=== PATIENT | male | born 1965 | race Caucasian/White ===

== ENCOUNTER 2018-08-05 07:20 | Observation (INO) | payer BC ==
--- NOTE | 2018-08-03 12:26 | Diagnostic Imaging Report ---
EXAMINATION: PA and lateral views of the chest. COMPARISON: None CLINICAL HISTORY: L5-S1 disc herniation. DISCUSSION: Lines/tubes: None. Lungs: The lungs are well inflated. Ill-defined 5-6 mm nodular density projecting in the retrosternal space on the seen in the lateral view. Lungs are otherwise clear.. There is no evidence of pneumonia or pulmonary edema. Pleura: There is no pleural effusion or pneumothorax. Heart and mediastinum: Cardiomediastinal silhouette is unremarkable. Pulmonary vasculature is normal. Bones and soft tissues: No acute bony abnormalities. IMPRESSION: No acute cardiopulmonary abnormalities. 5-6 mm nodular density projecting in the retrosternal space on the lateral view only. This may represent a calcified granuloma or pulmonary nodule. Prior films, if available, would be helpful for comparison. If no prior films can be obtained, recommend follow-up chest PA and lateral in 2-3 months to document stability. Alternatively, a noncontrast chest CT may be obtained for further evaluation. Signed by: Dr. Alejandro Corey M.D. on 08/03/2018 12:22 PM
[2018-08-03 12:29] LABS: BASOPHILS % 0.2 % (0.0-1.0); EOSINOPHILS # (AUTO) 0.1 (0.0-0.4); EOSINOPHILS % 0.6 % (0.0-6.0); HEMATOCRIT 48.4 % (38.2-49.6); HEMOGLOBIN 16.4 g/dL (14.0-18.0); LYMPHOCYTES # (AUTO) 2.3 (1.0-3.2); LYMPHOCYTES % 27.8 % (18.0-39.1); MEAN CORPUSCULAR HEMOGLOBIN 30.4 pg (28-32); MEAN CORPUSCULAR HGB CONC 33.9 g/dL (31-35); MEAN CORPUSCULAR VOLUME 89.8 fL (81-99); MONOCYTES # (AUTO) 0.6 (0.2-0.8); MONOCYTES % 6.9 % (4.4-11.3); NEUTROPHILS # (AUTO) 5.2 (2.1-6.9); NEUTROPHILS % 64.1 % (38.7-80.0); PLATELET COUNT 177 x10e3/uL (140-360); RED BLOOD COUNT 5.39 x10e6/uL (4.3-5.7); RED CELL DISTRIBUTION WIDTH 13.1 % (11.7-14.4)
[2018-08-03 12:41] LABS: INR 0.95; PROTHROMBIN TIME 13.5 seconds (11.9-14.5)
[2018-08-03 12:42] LABS: PARTIAL THROMBOPLASTIN TIME 28.6 seconds (23.8-35.5)
[2018-08-03 12:48] LABS: ANION GAP 14.3 mmol/L (8-16); BLOOD UREA NITROGEN 15 mg/dL (7-26); BUN/CREATININE RATIO 12 (6-25); CALCIUM 9.1 mg/dL (8.4-10.2); CARBON DIOXIDE 24 mmol/L (22-29); CHLORIDE 104 mmol/L (98-107); CREATININE, SERUM 1.22 mg/dL (0.72-1.25); EST GLOMERULAR FILTRATION RATE > 60 ML/MIN (60-); GLUCOSE 97 mg/dL (74-118); POTASSIUM 4.3 mmol/L (3.5-5.1); SODIUM 138 mmol/L (136-145)
[~2018-08-05] VITALS: Ht 180.3 cm; Wt 93.0 kg
[~2018-08-05 07:20] MED LIST: ACETAMINOPHEN 1000 MG/100 ML 100 ML IV ONE; LIDOCAINE HCL (LTA) 4 ML SOLN ONE
--- OUTSIDE RECORDS SUMMARY | 2018-08-05 07:22 | XMS REPORT | Clinical Summary ---
Author Author [facility] Address Unknown Phone Unavailable Care Team Providers Care Corporate Director Of Human Resources Name Role Phone Jarod Haynes MD PCP Allergies No Known Allergies Medications End Date Status Medication Sig Dispensed Refills Start Date 12/29/2017 sodium,potassium,mag Take 2 2 Bottle 0 sulfates 17.5-3.13-1.6 Bottles by 8 gram recon mouth once solnIndications: Colon for 1 dose. cancer screening Active Problems Not on file Encounters Care Team Description Date Type Specialty Mary Jane Cervantes MA 01/13/2018 Telephone Gastroenterology Ramírez Rice MD 01/08/2018 Anesthesia Gastroenterology Event Octavio Carney MD Colonoscopy with polypectomies 01/08/2018 Surgery Gastroenterology Octavio Carney MD Screen for colon cancer (Primary Dx); Colon cancer screening; Epigastric pain 01/08/2018 Hospital Gastroenterology Encounter Octavio Carney MD Colon cancer screening (Primary Dx); Epigastric pain; Dyspepsia 12/29/2017 Office Visit Gastroenterology after 08/04/2017 Family History Medical History Relation Name Comments No Known Problems Brother No Known Problems Father No Known Problems Mother No Known Problems Sister Relation Name Status Comments Brother Alive Father Mother Sister Alive Social History Date Tobacco Use Types Packs/Day Years Used Quit: 12/11/2017 Former Smoker Smokeless Tobacco: Never Used Alcohol Use Drinks/Week oz/Week Comments Yes Socially Sex Assigned at Date Recorded Not on file Industry Job Start Date Occupation Not on file Not on file Not on file Travel End Travel History Travel Start No recent travel history available. Last Filed Vital Signs Time Taken Vital Sign Reading 01/08/2018 10:05 AM CDT Blood Pressure 115/71 01/08/2018 10:05 AM CDT Pulse 69 01/08/2018 9:12 AM CDT Temperature 36.5 C (97.7 F) 01/08/2018 10:05 AM CDT Respiratory Rate 16 01/08/2018 10:05 AM CDT Oxygen Saturation 96% - Inhaled Oxygen - Concentration 01/08/2018 7:28 AM CDT Weight 95.7 kg (211 lb) 01/08/2018 7:28 AM CDT Height 180.3 cm (5' 11") 01/08/2018 7:28 AM CDT Body Mass Index 29.43 Plan of Treatment Health Maintenance Due Date Last Done Comments MMR VACCINES (1 of 1 - 1967 Standard series) VARICELLA VACCINES (1 of 1979 2 - 2-dose adolescent series) COLON CANCER SCREENING 2016 SHINGRIX VACCINE (1 of 2) 2016 INFLUENZA VACCINE 04/21/2018 HEPATITIS B VACCINES Aged Out No longer eligible based on patient's age to complete this topic IPV VACCINES Aged Out No longer eligible based on patient's age to complete this topic MENINGOCOCCAL VACCINE Aged Out No longer eligible based on patient's age to complete this topic Implants Device Identifier Shelf Expiration Date Model / Serial / Lot Implanted Type Area Manufactur er [id number] / / Clip Resolution 360 Mr Cndtl 235cm Surgical N/A: N/A BSC 2.8mm 11mm Opening - [id number] Implants; ENDOSCOPY Implanted: 01/08/2018 (Quantity not Expanders; on file) Extenders; Surgical Wires Procedures Comments Procedure Name Priority Date/Time Associated Diagnosis SURGICAL PATHOLOGY Routine 01/08/2018 REQUEST 11:12 AM CDT ESOPHAGOGASTRODUODENOSCOP 01/08/2018 Colon cancer screening Y (EGD) 8:30 AM CDT Epigastric pain COLONOSCOPY 01/08/2018 Colon cancer screening 8:30 AM CDT Epigastric pain after 08/04/2017 Results * Surgical pathology request (01/08/2018 11:12 AM CDT) [facility] Surgical pathology report See link below for PDF Lab [facility] Report PATHOLOGY AND GENOMIC MEDICINE Result status This is Final Report to [facility] [id number] PATHOLOGY AND GENOMIC MEDICINE Performing Organization Address City/State/Zipcode Phone Number [facility] [address] [place] [address] PATHOLOGY AND GENOMIC MEDICINE after 08/04/2017 Insurance Payer Benefit Subscriber ID Type Phone Address Plan / Group LAURA ELIAS xxxxxxxxxxxx PPO BLUE CROSS Advance Directives Patient has advance care planning documents on file. For more information, nataliya e contact: Jhonny Tomlinson [address] [place] [address]
--- OUTSIDE RECORDS SUMMARY | 2018-08-05 07:22 | XMS REPORT ---
Author Author [facility] Address Unknown Phone Unavailable Care Team Providers Care Telegraph Dispatcher Name Role Phone GEOVANI ARREGUIN Unavailable Unavailable Problems This patient has no known problems. Allergies, Adverse Reactions, Alerts This patient has no known allergies or adverse reactions. Medications This patient has no known medications. Results Test Description Test Time Test Comments Text Results Atomic Results Result Comments CHEST 2 VIEWS 2018-08-03 12:20:00 [place] [address] Patient Name: ANSLEY CHRIS MR #: [id number] : 1965 Age/Sex: 53/M Req #: [id number] Adm Physician: Ordered by: GEOVANI ARREGUIN MD Report #: [id number] Location: OR Room/Bed: Procedure: [id number] DX/CHEST 2 VIEWS Exam Date: 08/03/18 Exam Time: 1200 REPORT STATUS: Signed EXAMINATION: PA and lateral views of the chest. LEONCIO RISON: None CLINICAL HISTORY: L5-S1 disc herniation. DISCUSSION: Lines/tubes: None. Lungs: The lungs are well inflated. Ill-defined 5-6 mm nodular density projecting in the retrosternal space on the seen in the lateral view. Lungs are otherwise clear.. There is no evidence of pneumonia or pulmonary edema. Pleura: There is no pleural effusion or pneumothorax. Heart and mediastinum: Cardiomediastinal silhouette is unremarkable. Pulmonary vasculature is normal. Bones and soft tissues: No acute bony abnormalities. IMPRESSION: No acute cardiopulmonary abnormalities. 5-6 mm nodular density projecting in the retrosternal space on the lateral view only. This may represent a calcified granuloma or pulmonary nodule. Prior films, if available, would be helpful for comparison. If no prior films can be obtained, recommend follow-up chest PA and lateral in 2-3 months to document stability. Alternatively, a noncontrast chest CT may be obtained for further evaluation. Signed by: Dr. Cassidy Corey M.D. on 08/03/2018 12:22 PM Dictated By: CASSIDY COREY MD [id number] Transcribed By: KENNETH on 08/03/18 1222 COPY TO: GEOVANI ARREGUIN MD
--- NOTE | 2018-08-05 07:58 | Diagnostic Imaging Report ---
PROCEDURE: CT CHEST WITHOUT CONTRAST CT scan of the chest WITHOUT intravenous contrast, using standard protocol. TECHNIQUE: The chest was scanned utilizing a multidetector helical scanner from the apex to the level of the adrenal glands. No IV contrast was administered because of a referring physician request. Coronal and sagittal multiplanar reformations were obtained. COMPARISON: Chest radiograph 08/03/2018. INDICATIONS: ABNORMAL CHEST XRAY FINDINGS: Lines/tubes: None. Lungs and Airways: Calcified juxtapleural granuloma in the right upper lobe seen on series 3 image 56. No additional pulmonary nodules, consolidations, bronchiectasis, or fibrotic change. No nodule is identified corresponding to the retrosternal nodular density identified on the comparison chest radiograph. Pleura: The pleural spaces are clear. Heart and mediastinum: Visualized portions of the thyroid gland appear normal. Calcified right hilar lymph nodes. No axillary, hilar, or mediastinal lymphadenopathy. No pericardial effusion. Atherosclerotic coronary artery calcifications. Soft tissues: Normal. Abdomen: Visualized portions of the liver, spleen, pancreas, and adrenals are notable only for calcified granulomata within the spleen. Status post cholecystectomy. Small splenule in the splenic hilum. Bones: No osseous destructive lesions. IMPRESSION: No pulmonary nodule is identified to correspond to the retrosternal nodular density identified on comparison chest radiograph, which likely represented a summation of vascular structures. Evidence of remote granulomatous infection as detailed above. Atherosclerotic vascular disease. Dictated by: Marty Yi M.D. on 08/05/2018 at 8:07 Electronically approved by: Marty Yi M.D. on 08/05/2018 at 8:07
[2018-08-05] MEDS ORDERED: GELATIN SPONGE 12-7MM ONE (08:26)
[2018-08-05] MEDS ORDERED: BUPIVACAINE 0.5%/EPI 30 ML SDV INJ ONE (08:26)
[2018-08-05] MEDS ORDERED: BACITRACIN 50,000 UNIT VIAL ONE (08:27)
[2018-08-05] MEDS ORDERED: CEFAZOLIN SOD 1 GM VIAL ONE (09:01)
[2018-08-05] MEDS: LACTATED RINGER'S 1,000 ML IV SCH ×2 (09:44→18:04)
[2018-08-05] MEDS ORDERED: PROMETHAZINE HCL (IM) 25 MG/ML VIAL IM PRN (09:45)
[2018-08-05] MEDS ORDERED: MORPHINE SULFATE 5 MG/ML VIAL IM PRN (09:45)
[2018-08-05] MEDS ORDERED: MAGNESIUM/ALUMINUM/SIMETHICONE 30 ML UDC PO PRN (09:45)
[2018-08-05] MEDS ORDERED: ONDANSETRON HCL INJ 2 MG/ML VIAL IV PRN (09:45)
[2018-08-05] MEDS ORDERED: HYDROMORPHONE 2MG/ML 2 MG/ML ML IV PRN (09:45)
[2018-08-05] MEDS ORDERED: CARISOPRODOL 350 MG TAB PO PRN (09:45)
[2018-08-05] MEDS ORDERED: ACETAMINOPHEN 325 MG TAB PO PRN (09:45)
[2018-08-05] MEDS ORDERED: OXYCODONE/ACETAMINOPHEN 5-325 1 EACH TABLET PO PRN (09:45)
[2018-08-05] MEDS ORDERED: FENTANYL CITRATE/PF 100MCG/2 ML INJ ONE ×2 (11:11→19:05)
--- OUTSIDE RECORDS SUMMARY | 2018-08-05 11:38 | XMS REPORT | Clinical Summary ---
Author Author [employer] [facility] [facility] Address Unknown Phone Unavailable Care Team Providers Care Vehicle Dismantler Name Role Phone Jarod Haynes MD PCP [...] / Lot Implanted Type Area Manufactur er [id number] / / Clip Resolution 360 Mr Cndtl 235cm Surgical N/A: N/A BSC 2.8mm 11mm Opening - [id number] Implants; ENDOSCOPY Implanted: 01/08/2018 (Quantity not Expanders; on file) Extenders; Surgical Wires Procedures Comments Procedure Name Priority Date/Time Associated Diagnosis SURGICAL PATHOLOGY Routine 01/08/2018 REQUEST 11:12 AM CDT ESOPHAGOGASTRODUODENOSCOP 01/08/2018 Colon cancer screening Y (EGD) 8:30 AM CDT Epigastric pain COLONOSCOPY 01/08/2018 Colon cancer screening 8:30 AM CDT Epigastric pain after 08/04/2017 Results * Surgical pathology request (01/08/2018 11:12 AM CDT) [facility] PATHOLOGY AND GENOMIC MEDICINE Surgical pathology report See link below for PDF Lab [facility] OF Report PATHOLOGY AND GENOMIC MEDICINE Result status This is Final Report to [facility] OF [id number] PATHOLOGY AND GENOMIC MEDICINE Performing Organization Address City/State/Zipcode Phone Number [facility] DEPARTMENT OF [address] [place] [address] PATHOLOGY AND GENOMIC MEDICINE after 08/04/2017 Insurance Payer Benefit Subscriber ID Type Phone Address Plan / Group LAUAR ELIAS xxxxxxxxxxxx PPO BLUE CROSS Advance Directives Patient has advance care planning documents on file. For more information, nataliya e contact: Jhonny Tomlinson [address] [place] [address]
[2018-08-05] MEDS ORDERED: HYDROMORPHONE 2MG/ML 2 MG/ML ML ONE (11:40)
[2018-08-05 12:30] VITALS: BP 110/76
[2018-08-05 13:18] VITALS: BP 110/76
[2018-08-05] MEDS ORDERED: CEFAZOLIN SOD 1 GM/D5W 50ML 50 ML IV SCH (14:00)
[2018-08-05] MEDS ORDERED: THROMBIN FOR SOLN 5,000 UNIT VIAL TOP ONE (14:30)
[2018-08-05] MEDS: CEFAZOLIN SOD 1 GM VIAL IV SCH ×2 (14:30→20:37)
[2018-08-05 16:55] VITALS: BP 96/60
[2018-08-05] MEDS ORDERED: PROPOFOL IV EMULSION 10 MG/ML 20 ML VIAL ONE (17:23)
[2018-08-05] MEDS ORDERED: LIDOCAINE HCL 2% LOCAL INJ 5 ML SDV VIAL INJ ONE (17:23)
[2018-08-05] MEDS ORDERED: GLYCOPYRROLATE INJ 1MG/ 5 ML SYR ONE (17:23)
[2018-08-05] MEDS ORDERED: ROCURONIUM BROMIDE 10 MG/ML 5ML VIAL ONE (17:23)
[2018-08-05] MEDS ORDERED: NEOSTIGMINE 5 MG/5ML SYR ONE (17:23)
[2018-08-05] MEDS ORDERED: DEXAMETHASONE SOD PHOS INJ 4 MG/ML VIAL ONE (17:23)
[2018-08-05] MEDS ORDERED: ONDANSETRON HCL INJ 2 MG/ML VIAL ONE (17:23)
[2018-08-05] MEDS ORDERED: SEVOFLURANE INHAL SOLN 250 ML PEN BTL ONE (17:23)
[2018-08-05] MEDS ORDERED: MIDAZOLAM HCL 2 MG/2 ML VIAL ONE (19:05)
[2018-08-05 20:00] VITALS: BP 113/70
[2018-08-05] MEDS ORDERED: ZOLPIDEM TARTRATE 5 MG TAB PO PRN (21:00)
[2018-08-06] VITALS: BP 97/54
[2018-08-06 00:30] VITALS: BP 113/70
[2018-08-06] MEDS: LACTATED RINGER'S 1,000 ML IV SCH (02:24)
[2018-08-06 04:00] VITALS: BP 104/66
[2018-08-06] MEDS: CEFAZOLIN SOD 1 GM VIAL IV SCH (06:03)
[2018-08-06 08:43] VITALS: BP 106/61
[2018-08-06] MEDS ORDERED: NORCO 7.5-3251 EACH PO (09:24)
--- NOTE | 2018-08-11 14:15 | Operative Report ---
DATE OF PROCEDURE: August 05, 2018 PREOPERATIVE DIAGNOSIS: Left L5-S1 disk herniation with radiculopathy, M51.17. POSTOPERATIVE DIAGNOSIS: Left L5-S1 disk herniation with radiculopathy, M51.17. PROCEDURE: Left L5-S1 laminotomy, medial facetectomy and microsurgical diskectomy, [address]. ANESTHESIA: General. INDICATIONS: The patient is a 51-year-old man who presents with a large 9-mm left L5-S1 disk herniation with refractory S1 radiculopathy. He was taken to the operating room for microsurgical diskectomy. PROCEDURE: After induction of general anesthesia, the patient was placed on the operating table in prone position over a Kayden frame. Lumbar region was prepped and draped in sterile fashion. A preoperative x-ray was obtained. A small midline incision was created. Lumbar fascia was opened to the left of midline, and subperiosteal dissection was carried out to expose the left-sided L5 and S1 laminae and the medial aspect of the facet joint. A 2nd x-ray confirmed correct localization. The operating microscope was brought in. A high-speed drill equipped with a david bur was used to drill the inferior aspect of the lamina of L5, the medial rim of the inferior articular process of L5, and the superior articular process of S1. The ligamentum flavum was resected, and the dural sac and the S1 nerve root were exposed. The herniated disk material immediately came into view under the S1 nerve root. The epidural veins lateral to the nerve root were bipolar coagulated and divided with microscissors. The extruded disk material was retrieved with a micro-ball probe and removed with a micro-pituitary rongeur. This maneuver was repeated several additional times, and several fragments of disk were retrieved and removed. The S1 nerve root became fully decompressed. The nerve root was then slightly retracted medially. The opening into the annulus of the disk was incised with a #11 blade, and the loose contents of the disk were evacuated with curettes and pituitary rongeurs. Meticulous hemostasis was secured. Retractor was removed. The lumbar fascia was closed with #0 Vicryl sutures. Subcutaneous layer was closed with 2-0 Vicryl sutures. The skin was closed with 3-0 Monocryl sutures in subcuticular fashion. Steri-strips and dressing were applied. The patient was awakened, extubated and taken to the postanesthesia care unit in stable condition. No intraoperative complications were encountered. Estimated blood loss was 10 mL. Job#: [id number]
== END 2018-08-06 09:56 | disposition home or self-care (01) ==
LOC: OR 07:20 → PACU V 09:44 → IMCU 12:34
PROVIDERS: ADMIT Neurological Surgery; ATTEND Neurological Surgery
DX: M51.17 Intervertebral disc disorders with radiculopathy, lumbosacral region (principal); Z72.0 Tobacco use; F41.9 Anxiety disorder, unspecified; M26.609 Unspecified temporomandibular joint disorder, unspecified side; Z01.810 Encounter for preprocedural cardiovascular examination; Z01.812 Encounter for preprocedural laboratory examination; Z01.811 Encounter for preprocedural respiratory examination
CPT/HCPCS: 36415; 63047; 71046; 71250; 72020; 80048; 85025; 85610; 85730; 86850; 86900; 86920; 88304; 93005; G0378 ×2; J0131; J0690 ×2; J1100; J1170; J2001; J2250; J2270; J2405; J2550; J2704; J3490; J7120